=== PATIENT | male | born 2000 | race Hispanic/Latino ===

== ENCOUNTER 2019-05-14 18:14 | Emergency (ER) | payer OTHER, SELFPAY ==
[2019-05-14] MEDS ORDERED: Dexamethasone 4 MG TAB ONE (18:50)
== END 2019-05-14 19:47 | disposition home or self-care (01) ==
LOC: ERS 18:14
DX: T63.441A Toxic effect of venom of bees, accidental (unintentional), initial encounter (principal); M79.89 Other specified soft tissue disorders; J11.1 Influenza due to unidentified influenza virus with other respiratory manifestations
CPT/HCPCS: 87081; 87430; 87804; 99283; J8540